=== PATIENT | female | born 1960 | race Caucasian/White ===

== ENCOUNTER 2018-04-22 07:31 | Emergency (ER) | payer OTHER ==
[2018-04-22 07:40] VITALS: BP 133/66
--- NOTE | 2018-04-22 09:15 | RAD ---
INDICATION: Left hip pain. COMPARISON: There are no prior studies available for comparison. TECHNIQUE: An AP view of the pelvis and frontal and lateral views of the left hip were obtained. FINDINGS: The bones are in normal alignment. No fracture is seen. There is calcification adjacent to the superior aspect of the left greater trochanters suggestive of calcific tendinitis or bursitis. Joint spaces appear maintained. IMPRESSION: CALCIFICATION ADJACENT TO THE LEFT GREATER TROCHANTER SUGGESTING THE POSSIBILITY OF CALCIFIC TENDINITIS OR BURSITIS. RECOMMEND CLINICAL CORRELATION.
--- NOTE | 2018-04-22 09:17 | RAD ---
INDICATION: Low back pain. COMPARISON: There are no prior studies available for comparison. TECHNIQUE: 5 views of the lumbar spine were obtained including lateral, oblique, AP and a coned-down lateral view of the lumbar sacral junction. FINDINGS: The vertebra are in normal alignment. No fracture is seen. There is mild disc space narrowing and endplate spurring present at the L1-L2, L2-L3 and L3-L4 levels consistent with mild degenerative disc disease. IMPRESSION: MILD DEGENERATIVE DISC DISEASE.
--- NOTE | 2018-05-20 09:26 | UC ---
Makenzie Hill Gabriel, scribed for Mine Barksdale MD on 04/22/18 at 0836 . Lower Extremity/Ankle HPI - HPI Summary HPI Summary: This patient is a 57 year old F [place] [facility] [place] chief complaint of LLE pain that began 3 days ago. The patient rates the pain 8/10 in severity. Patient reports intermittent numbness and pain radiating into the left foot. Patient denies incontinence bowel and bladder. Pt had a similar episode three weeks ago that was less severe and only lasted one day. She had trouble ambulated and getting up from the sitting position. Pt has used heating pad and ibuprofen without relief. She has been instructed to contact her PCP Dr. Dunlap. She has no previous back or hip injury. Pt takes acyclovir intermittently and has tried an unknown muscle relaxer without relief. - History of Current Complaint Chief Complaint: UCLowerExtremity Stated Complaint: LEG PAIN Time Seen by Provider: 04/22/18 08:11 Hx Obtained From: Patient Hx Last Menstrual Period: menapause ?: No Onset/Duration: Lasting Days, Still Present Severity Initially: Severe Severity Currently: Severe Pain Intensity: 8 Pain Scale Used: 0-10 Numeric Alleviating Factor(s): Nothing Able to Bear Weight: Yes - Allergies/Home Medications Allergies/Adverse Reactions: Allergies Allergy/AdvReac Type Severity Reaction Status Date / Time No Known Allergies Allergy Verified 04/22/18 07:41 PMH/Surg Hx/FS Hx/Imm Hx Previously Healthy: Yes Other History Of: Negative For: HIV - Surgical History Surgical History: Yes Surgery Procedure, Year, and Place: HYSTERECTOMY 2010 - Family History Known Family History: Positive: Hypertension - Social History Alcohol Use: Daily Alcohol Amount: 1-2 glasses Substance Use Type: None Smoking Status (MU): Former Smoker Type: Cigarettes - Immunization History Most Recent Influenza Vaccination: utd Most Recent Tetanus Shot: not sure Most Recent Pneumonia Vaccination: none Review of Systems Constitutional: Negative Skin: Negative Eyes: Negative ENT: Negative Respiratory: Negative Cardiovascular: Negative Gastrointestinal: Negative Genitourinary: Negative Motor: Other - see hpi Neurovascular: Other - see hpi Musculoskeletal: Arthralgia - see hpi Neurological: Negative Psychological: Negative Is Patient Immunocompromised?: No All Other Systems Reviewed And Are Negative: Yes Physical Exam Triage Information Reviewed: Yes Appearance: Well-Nourished Vital Signs: Initial Vital Signs Temp 97 F 04/22/18 07:38 Pulse 99 04/22/18 07:38 Resp 16 04/22/18 07:38 BP 133/66 04/22/18 07:38 Pulse Ox 100 04/22/18 07:38 Vital Signs Reviewed: Yes Eye Exam: Normal ENT Exam: Normal Neck exam: Normal Neck: Positive: Supple Respiratory Exam: Normal Cardiovascular Exam: Normal Abdominal Exam: Normal Musculoskeletal Exam: Other - Very tender R lat Hip, rom limited d/t pain. Distal cap refill ok Neurological Exam: Other - nonfocal. Distal sensation is present BLE. Psychological Exam: Normal Skin Exam: Normal - no visible or reported rash Diagnostics - Radiology L spine Xray Radiology Interpretation Completed By: Radiologist - MILD DEGENERATIVE DISC DISEASE. Dr. Barksdale has reviewed this radiology report and agrees. Hip/Pelvis Xray Radiology Interpretation Completed By: Radiologist - CALCIFICATION ADJACENT TO THE LEFT GREATER TROCHANTER SUGGESTING THE POSSIBILITY OF CALCIFIC TENDINITIS OR BURSITIS. RECOMMEND CLINICAL CORRELATION. Dr. Barksdale has reviewed this radiology report and agrees. Lower Extremity Course/Dx - Course Course Of Treatment: Reviewed radiology reports with pt. D/w Ms. Otero coa / tx plan. Encourage f/u PCP. Questions as posed answered to the best of my ability. - Differential Dx/Diagnosis Provider Diagnoses: Bursitis. Calcific tendonitis Discharge - Sign-Out/Discharge Documenting (check all that apply): Patient Departure - Discharge Plan Condition: Stable Disposition: HOME Prescriptions: Cyclobenzaprine TAB* [Flexeril 10 MG TAB*] 10 mg PO TID PRN #30 tab PRN Reason: Spasms Meloxicam(NF) [Mobic(NF)] 15 mg PO DAILY #30 tab Patient Education Materials: Hip Bursitis (ED), Calcific Tendinitis (ED), Degenerative Disc Disease (ED) Forms: *Work Release Referrals: Edwin Dunlap MD [Primary Care Provider] - Additional Instructions: Please follow up with your primary care physician in 1-2 weeks for recheck. Seek medical attention for worse or new problems. Orthopedic referral - 1-2 weeks. Careful not to mix antiinflammatory medication (ie - ok to supplement pain with acetaminophen, not ibuprofen) - Billing Disposition and Condition Condition: STABLE Disposition: Home The documentation as recorded by the Makenzie oh Gabriel accurately reflects the service I personally performed and the decisions made by me, Mine Barksdale MD.
== END 2018-04-22 09:49 | disposition home or self-care (01) ==
LOC: UCEAST 07:31
DX: M65.252 Calcific tendinitis, left thigh (principal); M51.37 Other intervertebral disc degeneration, lumbosacral region; Z90.710 Acquired absence of both cervix and uterus; Z82.49 Family history of ischemic heart disease and other diseases of the circulatory system; Z87.891 Personal history of nicotine dependence
CPT/HCPCS: 72110; 99212; G0463